=== PATIENT | male | born 1980 | race Caucasian/White ===

== ENCOUNTER → 2019-06-14 14:28 | Outpatient (CLI) | payer OTHER, SELFPAY ==
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
== END ==
PROVIDERS: PCP Family Medicine; Visit Provider Nurse Practitioner Family
DX: S62.025G Nondisplaced fracture of middle third of navicular [scaphoid] bone of left wrist, subsequent encounter for fracture with delayed healing (principal); V89.2XXD Person injured in unspecified motor-vehicle accident, traffic, subsequent encounter
CPT/HCPCS: 73221; 73721

== ENCOUNTER 2019-06-17 10:24 | Outpatient (RCR) | payer OTHER, SELFPAY | END 2019-06-17 11:00 | disposition home or self-care (01) | LOC: PT 10:24 | PROVIDERS: Visit Provider Orthopaedic Surgery | DX: M25.562 Pain in left knee (principal); S80.02XA Contusion of left knee, initial encounter | CPT/HCPCS: 97760 ==

== ENCOUNTER → 2019-07-08 10:07 | Outpatient (CLI) | payer OTHER, SELFPAY ==
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
== END ==
PROVIDERS: PCP Family Medicine; Visit Provider Orthopaedic Surgery
DX: S69.92XD Unspecified injury of left wrist, hand and finger(s), subsequent encounter (principal); T14.8XXA Other injury of unspecified body region, initial encounter
CPT/HCPCS: 73110

== ENCOUNTER 2019-07-08 11:35 | Outpatient (RCR) | payer OTHER, SELFPAY | END 2019-07-08 12:00 | disposition home or self-care (01) | LOC: OT 11:35 | PROVIDERS: Visit Provider Orthopaedic Surgery | DX: S62.102A Fracture of unspecified carpal bone, left wrist, initial encounter for closed fracture (principal) | CPT/HCPCS: 97763 ==

== ENCOUNTER 2019-08-11 15:25 | Outpatient (RCR) | payer OTHER, SELFPAY | END 2019-08-11 15:30 | disposition home or self-care (01) | LOC: PT 15:25 | PROVIDERS: Visit Provider Orthopaedic Surgery Hand Surgery | DX: M24.832 Other specific joint derangements of left wrist, not elsewhere classified (principal) | CPT/HCPCS: 97163 ==

== ENCOUNTER 2019-08-11 15:30 | Outpatient (RCR) | payer OTHER, SELFPAY ==
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
--- NOTE | 2019-07-22 09:47 | HMH.RHREAS ---
Rehab Reassessment Rehab OP Re-assessment Start: 07/22/19 09:43 Freq: Status: Active Protocol: Document 07/22/19 09:44 CAROLA (Rec: 07/22/19 09:47 CAROLA [id number]) Electronically Signed By Daniel Garrido, PT 07/22/19 09:44 Rehab Re-assessment Subjective Subjective Pt reports much less pain overall, no sharp pains while turning for 1-2 weeks. Objective Objective Notes L knee ROM: 0-129. MMT L knee: 4+/5 throughout Assessment Progress Assessment Progressing as Expected Assessment Notes Gait pattern and pain much improved. Continues to need strength. Patient goals met ST,2,3,4,5,6 LT,2 Goals Not Met LTG; 3,4,5,6 Revised Goals none Plan Plan Continue per initial POC Frequency of Therapy 2 x/wk Duration of therapy 8 wks Time and Billing Re-Eval Time 15 Re-Eval Billing Units 1 PHYSICIAN CERTIFICATION: I certify the specified therapy services for Israel Ramirez are required, authorized, and reviewed every 30 days.
== END 2019-08-11 15:35 | disposition home or self-care (01) ==
LOC: PT 15:30
PROVIDERS: Visit Provider Orthopaedic Surgery
DX: S89.92XA Unspecified injury of left lower leg, initial encounter (principal); T14.8XXA Other injury of unspecified body region, initial encounter
CPT/HCPCS: 97010; 97014; 97016; 97033; 97035; 97110; 97140; 97163; 97164; G0283

== ENCOUNTER → 2020-01-09 09:52 | Outpatient (CLI) | payer OTHER, SELFPAY ==
--- NOTE | 2020-01-09 09:56 | XR_ITS ---
PROCEDURE: XR KNEE LT 4V CLINICAL INDICATION: knee pain COMPARISON: CR XR KNEE LT 3V from 05/30/2019 FINDINGS: No fracture or dislocation. No lytic or blastic change. There is normal mineralization. The joint spaces are well-preserved. No significant degenerative/arthritic changes. No erosive changes evident. Other findings:None. IMPRESSION: No acute findings. Dictated by: Tom Perdomo MD 01/09/2020 14:04 Tom Perdomo MD in [place] 01/09/2020 14:04
== END ==
PROVIDERS: PCP Family Medicine; Visit Provider Orthopaedic Surgery
DX: M25.562 Pain in left knee (principal)
CPT/HCPCS: 73564

== ENCOUNTER 2020-05-14 16:00 | Outpatient (RCR) | payer BC, OTHER, SELFPAY | END 2020-05-14 16:05 | disposition home or self-care (01) | LOC: PT 16:00 | PROVIDERS: PCP Family Medicine; Visit Provider Orthopaedic Surgery | DX: S89.90XA Unspecified injury of unspecified lower leg, initial encounter (principal) | CPT/HCPCS: 97010; 97014; 97016; 97110; 97140; 97163; 97164; 97530; G0283 ==

== ENCOUNTER → 2022-12-22 15:36 | Outpatient (CLI) | payer OTHER, SELFPAY ==
[2022-12-22 17:04] LABS: Semen Viscosity Normal (Normal); WBCs,Semen Negative
[2022-12-22 18:53] LABS: Motility Quality Rapid Progression (Mod-Rapid); Sperm Motility 60 % (50-90)
[2022-12-22 18:56] LABS: 3Hr Motility Quality Rapid Progression (Mod-Rapid); 3Hr Sperm Motility 10 % (50-60)
[2022-12-22 19:32] LABS: Sperm Count 19 mil/mm3 (20-160)
[2022-12-22 19:35] LABS: Sperm Morphology Normal (Normal)
== END ==
PROVIDERS: PCP Internal Medicine Adolescent Medicine; Visit Provider Nurse Practitioner Obstetrics & Gynecology
DX: N46.9 Male infertility, unspecified (principal); R79.89 Other specified abnormal findings of blood chemistry
CPT/HCPCS: 89320

== ENCOUNTER 2023-06-18 16:39 | Emergency (ER) | payer OTHER, SELFPAY ==
[2023-06-18 16:50] VITALS: BP 145/89; PULSE 96; RESP 20; TEMP 36.8; O2SAT 98; BMI 30.7
--- NOTE | 2023-06-18 17:14 | XR_ITS ---
PROCEDURE INFORMATION: Exam: XR Chest Exam date and time: 06/18/2023 5:09 PM Age: 43 years old Clinical indication: Other: Congestion; Additional info: Congestion, states tested pos. For flu on Thursday TECHNIQUE: Imaging protocol: Radiologic exam of the chest. Views: 2 views. COMPARISON: CR XR CERVICAL SPINE 3V 05/30/2019 5:04 PM FINDINGS: Lungs: No evidence of acute pulmonary disease or infiltrates Pleural spaces: No large effusion or pneumothorax. Heart/Mediastinum: No evidence of mediastinal widening or cardiac silhouette enlargement; the mediastinum and heart appear within normal limits for contour and size. Diaphragm: There is elevation of the right hemidiaphragm. Bones/joints: No evidence of acute osseous abnormalities within the visualized portions of the thoracic spine and ribs. Osseous structures appear appropriate for patient age. There are degenerative changes of the thoracic spine. IMPRESSION: No dense parenchymal consolidation, pleural effusion, or pneumothorax.
--- NOTE | 2023-06-18 17:16 | ED_ITS ---
Discharge Plan Disposition Patient Disposition: Home, Self-Care Condition: Good Prescriptions Prescriptions: No Action losartan 50 mg tablet 50 mg PO DAILY metoprolol succinate 50 mg tablet extended release 24 hr 50 mg PO DAILY Referrals Follow up/Referrals: Osvaldo Whyte MD [Primary Care Provider] - See instructions Activity Restrictions/Add. Instructions Additional Instructions/Restrictions: Over the counter Coricidin HBP cold and flu may help with nasal congestion Vaporizer may help with nasal congestion and cough Follow up with your Family Doctor if no improvement or any worsening of symptoms Return if needed Straight to ER if any life threatening symptoms or worsening of shortness of breath Clinical Impressions Clinical Impression: Influenza Instructions Patient Instructions: DI for Influenza -- Adult, DI for Nasal Congestion Discharge ED Provider: Sonya Sanchez [facility] General Stated complaint: flu+, SOA Mode of Arrival: Ambulatory Source of Information: Patient Limitations: No Limitations Time Seen by Provider: 06/18/23 17:16 Description of Symptoms (Recalled from Triage Doc. by RN): PATIENT C/O SOA X 1 WEEK. FLU B + HEENT Symptoms (Recalled from RN notes): No Resp Symptoms (Recalled from RN notes): Yes Skin Symptoms (Recalled from RN notes): No MS Symptoms (Recalled from RN notes): No Functional Status (Recalled from RN notes): WNL History of Present Illness Provider Complaint: Patient states that he has been having nasal congestion and cough was dx with flu on Thursday States earlier he was up moving around and felt a little SOA States that his nose is stopped up but with him having the flu he wanted to get his oxygen checked and checked out so he came in Related Data Home Medications Medication Instructions Recorded Confirmed losartan 50 mg tablet 50 mg PO DAILY 06/18/23 06/18/23 metoprolol succinate 50 mg 50 mg PO DAILY 06/18/23 06/18/23 tablet,extended release 24 hr Allergies Allergy/AdvReac Type Severity Reaction Status Date / Time No Known Allergies Allergy Verified 06/18/23 16:56 Worker's Comp Is this a Worker's Comp case?: No [facility] Disclaimer: The information contained in this section may have been updated after the patient was seen, as this information can be updated by other users. Medical History (Updated 06/18/23 @ 17:52 by Sonya Sanchez APRN) Hypertension Social History Smoking Status: Never smoker alcohol intake: current substance use type: denies use current occupational status: employed Travel in the last 8 weeks: Inside the [place] housing: house ROS Obtained: Yes All systems reviewed & no additional complaints except as documented and Yes Systems reviewed as appropriate & no additional complaints except as documented Constitutional Constitutional: Reports system reviewed and no additional complaints, except as documented and Reports as per HPI ENT Ears, Nose, Mouth, and Throat: Reports system reviewed and no additional complaints, except as documented and Reports as per HPI Cardiovascular Cardiovascular: Reports system reviewed and no additional complaints, except as documented and Reports as per HPI Respiratory Respiratory: Reports system reviewed and no additional complaints, except as documented, Reports as per HPI, Reports shortness of breath (at times with coughing or up moving around), Reports chest congestion and Reports cough Gastrointestinal Gastrointestingal: Reports system reviewed and no additional complaints, except as documented and as per HPI Physical Exam General General appearance: alert and in no apparent distress ENT ENT exam: Present mucous membranes moist Expanded ENT Exam Nose exam: Present other (nasal congestion); Absent sinus tenderness Respiratory Respiratory exam: Present normal lung sounds bilaterally; Absent respiratory distress or wheezes Cardiovascular Cardiovascular exam: Present regular rate, normal rhythm and normal heart sounds Neurological Exam Neurological exam: Present alert, oriented X3 and normal gait Medical Decision Making Alfie Inquiry Pt receiving controlled substance: No Alfie was queried for this patient: No Vital Signs: 06/18/23 16:50 Temperature 98.2 F Temperature Source Oral Pulse Rate [Left Brachial] 96 H Respiratory Rate 20 Blood Pressure [Left Arm] 145/89 H Blood Pressure Mean [Left Arm] 107 Blood Pressure Source [Left Arm] Automatic Cuff Blood Pressure Position [Left Arm] Sitting 02 Sat by Pulse Oximetry 98 Oxygen Delivery Method Room Air Orders (Tests/Meds): ORDERS Category Date Time Status CXR 2 view (NOT portable) [XR chest 2V] Stat Exams 06/18/23 17:14 Ordered Radiology Data #1: Image(s): Chest Image Reviewed: Yes I have reviewed radiologist's interpretation IMPRESSION: No dense parenchymal consolidation, pleural effusion, or pneumothorax.
[2023-06-18 17:53] VITALS: BP 145/89; PULSE 96; RESP 20; TEMP 36.8; O2SAT 98
== END 2023-06-18 17:59 | disposition home or self-care (01) ==
PROVIDERS: Emergency Provider Nurse Practitioner; PCP Family Medicine
DX: J10.1 Influenza due to other identified influenza virus with other respiratory manifestations (principal); R06.02 Shortness of breath; R09.81 Nasal congestion; R05.9 Cough, unspecified; I10 Essential (primary) hypertension
CPT/HCPCS: 71046; 99203; 99212; G0463

== ENCOUNTER 2025-02-14 10:29 | Outpatient (CLI) | payer BC, SELFPAY ==
--- OUTSIDE RECORDS SUMMARY | 2025-02-14 10:35 | XMS_ITS | Clinical Summary ---
[facility] Organization [facility] Address [address] [place] [address] Care Team Providers Care City Planner Name Role Phone Jean-Claude Whyte MD Primary Care Provider [phone] Allergies No known active allergies Social History Tobacco Use Types Packs/Day Years Used Date Smoking Tobacco: Never Assessed Abuse Screen Answer Date Recorded Unsafe at Home or Work/School Not on file Feels Threatened by Someone? Not on file 02/2024 Does Anyone Keep You from Co ntacting Others or Doint Things Outside the Home? Not on file 11/02/2023 Physical Sign of Abuse Present Not on file 0 11/02/2023 Housing Stability Answer Date Recorded Current Living Arrangements Not on file 10/23 Potentially Unsafe Housing Conditions Not on taina e 11/02/2023 Family and Community Support Answer Morteza e Recorded Help with Day-to-Day Activities Not on file 11/02/2023 Lonely or Isolated Not on file 11/02/2023 Employment Answer Date Recorded Do you want help finding or keeping work or a celestino b? Not on file 11/02/2023 Disabilities Answer Date Recorded Concentrating, Remembering, or Making Decisions Difficulty Not on file 11/02/2023 Doing Errands Independently Difficulty Not on fi le 11/02/2023 Education Answer Date Recorded Help with school or training? Not on file Preferred Language Not on file 11/02/2023 Sex and Gender Information Value Date Recorded Sex Assigned at Not on file Legal Sex Male 3:10 PM EDT Gender Identity Not on file Sexual Orientation Not on file Plan of Treatment Health Maintenance Due Date Last Done Comments ANNUAL PHYSICAL 1978 HEPATITIS C SCREENING 1978 TDAP/TD VACCINES (1 - Tdap) 1997 COLOGUARD 2023 COLON CANCER SCREENING 5 YEA R SIGMOIDOSCOPY 2023 COLONOSCOPY 2023 [address]ER SCREENING 2023 CT COLONOGRAPHY 2023 FECAL OCCULT BLOOD TEST 2023 FIT Testing (1 year) 2023 INFLUENZA VACCINE 12/23/2024 Pneumococcal Vaccine 0-49 Aged Out No longer eligible based on patient's age to complete this topic Insurance [facility] PPO Member Subscriber Plan / Payer (Ef fective 2023-Present) Name:Israel Ramirez Relation to Subscriber:Self Name:Israel Ramirez Payer ID:[id number] (NAIC) Type:Not on file Address: [facility] [id number] [place] [id number] Care Teams City Planner Relationship Specialty Start Date End Date Jean-Claude Whyte MD [address] [place] [address] PCP - General Family Medicine 11/09/23
--- OUTSIDE RECORDS SUMMARY | 2025-02-14 10:35 | XMS_ITS | Clinical Summary ---
Author Organization [facility] Address [address] [place] [address] Care Team Providers Care Independent Contractor Name Role Phone Jean-Claude Whyte MD Primary Care Provider [phone] Allergies No known active allergies Family History Medical History Relation Name Comments Conversions - Other Mother Healthy adult Relation Name Status Comments Mother Social History Tobacco Use Types Packs/Day Years Used Date Smoking Tobacco: Never Sex and Gender Information Value Date Recorded Sex Assigned at Not on file Legal Sex Male 7:55 PM EDT Gender Identity Not on file Sexual Orientation Not on file Last Filed Vital Signs Vital Sign Reading Time Taken Comments Blood Pressure 151/91 04/04/2022 8:03 AM EST Pulse 89 10/17/2020 11:12 AM EDT Temperature - - Respiratory Rate - - Oxygen Saturation - - Inhaled Oxygen Concentration - - Weight 104 kg (230 lb) 04/04/2022 8:03 AM EST Height 177.8 cm (5' 10 ) 04/04/2022 8:03 AM EST Body Mass Index 33 04/04/2022 8:03 AM EST Plan of Treatment Health Maintenance Due Date Last Done Comments [facility]-Depression Screening 1978 [facility]-HIV Screening 1978 [facility]-Hepatitis C Screening 1978 [facility]-Infant/Child/Adol SDOH Screenings 1978 [facility]- SDOH Screenings 1996 [facility]-Adult SDOH Screenings 1996 [facility]-DTaP,Tdap,and Td Vaccine s (1 - Tdap) 1997 [facility]-Hepatitis B Vaccines (1 of 3 - 19+ 3-dose series) 1997 CT Colonography 2023 Colonoscopy 2023 FIT-DNA 2023 FIT 2023 FOBT 2023 Sigmoidoscopy 2023 [facility]-Colorectal Cancer Screening 2023 [id number] Vaccine (1 - 20 24-25 season) 2025 [facility]-Influenza Vaccine (#1) 2025 [facility]-Zoster Vaccines (1 of 2) 2028 [facility]-Obesity Intervention Completed 04/04/2022 HPV Vaccines Aged Out No longer eligi ble based on patient's age to complete this topic [facility]-HIB Vaccines Aged Out No longer e ligible based on patient's age to complete this topic [facility]-Hepatitis A Vaccines Aged Out No longer eligible based on patient's age to complete this topic [facility]-IPV Vaccines Aged Out No longer e ligible based on patient's age to complete this topic [facility]-Pneumococcal Vaccine: Pediatrics (0 to 5 Years) and At-Risk Patients (6 to 49 Years) Aged Out No long er eligible based on patient's age to complete this topic [facility]-Rotavirus Vaccines Aged Out No lo nger eligible based on patient's age to complete this topic Insurance [employer] Care Teams Independent Contractor Relationship Specialty Start Date End Date Jean-Claude Whyte MD [address] [place] [address] [address] [id number] [id number] PCP - General 10/05/20
--- NOTE | 2025-02-14 10:36 | XR_ITS ---
FINAL REPORT CLINICAL HISTORY: HEEL PAIN LATERAL HEEL KNOT SIZE OF A PEA X FEW MONTHS NO INJURY FINDINGS: AP, oblique and lateral views of the left foot were obtained. There is no prior exam for comparison. There is no acute fracture or dislocation. The joint spaces are preserved. Soft tissues are unremarkable. IMPRESSION: No acute osseous abnormality of the left foot. Reviewed, Interpreted and Dictated by Kristi Foley MD Transcribed by Katia Bell Authenticated and . [facility]
== END 2025-02-14 23:59 | disposition home or self-care (01) ==
LOC: RAD 10:33
PROVIDERS: PCP Family Medicine; Visit Provider Family Medicine
DX: M79.672 Pain in left foot (principal)
CPT/HCPCS: 73630